=== PATIENT | female | born 1995 | race African-American/Black ===

== ENCOUNTER 2018-07-25 15:40 | Emergency (ER) | payer SELFPAY ==
[~2018-07-25] VITALS: Ht 160 cm; Wt 61.2 kg
[2018-07-25 15:58] VITALS: BP 108/85
[2018-07-25 16:55] LABS: Urine Bacteria NONE SEEN /hpf (None Seen); Urine Blood 3+ /uL (Negative); Urine Specific Gravity 1.022 (1.001-1.035); Urine WBC 1 /hpf (0 - 5)
== END 2018-07-25 17:06 | disposition left against medical advice (07) ==
LOC: ER 15:40
DX: N93.8 Other specified abnormal uterine and vaginal bleeding (principal)
CPT/HCPCS: 81001